=== PATIENT | female | born 1990 | race Caucasian/White ===

== ENCOUNTER 2018-11-12 14:35 | Emergency (ER) | payer OTHER ==
[~2018-11-12] VITALS: Ht 175.3 cm; Wt 59.0 kg
--- NOTE | 2018-11-12 15:50 | NUR ---
PATIENT WAS MSE BY DR GROVES IN [facility].
--- NOTE | 2018-11-12 16:02 | NUR ---
Patient discharged to home in stable conditon. Written and verbal after care instructions given. Patient verbalizes understanding of instructions.
[2018-11-12 16:03] VITALS: BP 119/79
== END 2018-11-12 16:15 | disposition home or self-care (01) ==
LOC: ER 14:35
DX: G40.909 Epilepsy, unspecified, not intractable, without status epilepticus (principal); Z88.0 Allergy status to penicillin; Z88.1 Allergy status to other antibiotic agents
CPT/HCPCS: A4663

== ENCOUNTER 2019-12-20 08:24 | Emergency (ER) | payer SELFPAY ==
[~2019-12-20] VITALS: Ht 175.3 cm; Wt 59.0 kg
--- NOTE | 2019-12-20 08:40 | NUR ---
PATIENT WAS MSE BY DR LEE IN ROOM 05A.
[2019-12-20] MEDS ORDERED: METOCLOPRAMIDE HCL 10 MG/2 ML VIAL IM ONE (08:45)
[2019-12-20] MEDS ORDERED: diphenhydrAMINE 50 MG/1 ML VIAL IM ONE (08:45)
[2019-12-20] MEDS ORDERED: METOCLOPRAMIDE HCL 10 MG/2 ML VIAL ONE (08:50)
[2019-12-20] MEDS ORDERED: diphenhydrAMINE 50 MG/1 ML VIAL ONE (08:50)
[2019-12-20] MEDS ORDERED: KETOROLAC TROMETHAMINE 30 MG INJ IVP ONE (09:45)
[2019-12-20] MEDS ORDERED: IV NORMAL SALINE 1000 ML BAG IV ONE (09:45)
[2019-12-20] MEDS ORDERED: KETOROLAC TROMETHAMINE 30 MG INJ ONE (09:50)
--- NOTE | 2019-12-20 10:51 | NUR ---
Patient discharged to home in stable condition. Written and verbal after care instructions given. Patient verbalizes understanding of instructions. All belongings sent with patient
[2019-12-20 10:53] VITALS: BP 125/68
== END 2019-12-20 10:52 | disposition home or self-care (01) ==
LOC: ER 08:24
DX: G40.909 Epilepsy, unspecified, not intractable, without status epilepticus (principal)
CPT/HCPCS: 96361; 96372 ×2; 96374; 99284; J1200; J1885; J2765; A4663; J7030

== ENCOUNTER 2020-12-02 06:54 | Emergency (ER) | payer SELFPAY ==
[~2020-12-02] VITALS: Ht 175.3 cm; Wt 59.0 kg
--- NOTE | 2020-12-02 07:04 | NUR ---
Patient walked into ER for headache and nausea since last night, getting worse. patient states she has a history of migraines.
--- NOTE | 2020-12-02 07:06 | NUR ---
Endorsed to BELLA Townsend.
[2020-12-02] MEDS ORDERED: HYDROMORPHONE 1 MG/1 ML DISP.SYRIN IV ONE (07:15)
[2020-12-02] MEDS ORDERED: ONDANSETRON 4 MG/2 ML VIAL IV ONE (07:15)
[2020-12-02] MEDS ORDERED: IV NORMAL SALINE 1000 ML BAG IV ONE (07:15)
[2020-12-02] MEDS ORDERED: ONDA4TAB5 PO (07:16)
[2020-12-02] MEDS ORDERED: OXYC-133 PO (07:16)
[2020-12-02] MEDS ORDERED: ONDANSETRON 4 MG/2 ML VIAL ONE (07:27)
[2020-12-02] MEDS ORDERED: HYDROMORPHONE 2 MG/1 ML DISP.SYRIN ONE (07:27)
--- NOTE | 2020-12-02 09:23 | NUR ---
pt ride here to take the pt home. pt says feels better.Patient discharged to home in stable condition. Written and verbal after care instructions given. pt walks in steady gait Patient verbalizes understanding of instructions. Stressed follow up or return to ER for worsening s/s.
[2020-12-02 09:26] VITALS: BP 119/67
== END 2020-12-02 09:35 | disposition home or self-care (01) ==
LOC: ER 07:03
DX: G43.909 Migraine, unspecified, not intractable, without status migrainosus (principal); Z88.1 Allergy status to other antibiotic agents; Z88.0 Allergy status to penicillin; G40.909 Epilepsy, unspecified, not intractable, without status epilepticus
CPT/HCPCS: 96361; 96374; 96375; 99284; J1170; J2405; A4663; J7030

== ENCOUNTER 2020-12-29 17:12 | Emergency (ER) | payer MEDICAID ==
[~2020-12-29] VITALS: Ht 175.3 cm; Wt 63.5 kg
--- NOTE | 2020-12-29 17:17 | NUR ---
pt is 30yo F brought in by her in a car. pt transferred from car to wheelchair. pt stated she had a seizure in the car and has history of epilepsy. pt also stated she ran out of her Keppra 2 weeks ago so she has not been taking it. complains of headache.
--- NOTE | 2020-12-29 17:20 | NUR ---
MD at bedside to assess pt
[2020-12-29] MEDS ORDERED: KETOROLAC TROMETHAMINE 30 MG INJ IVP ONE (17:30)
[2020-12-29] MEDS ORDERED: levETIRAcetam IV 500 MG in IV DEXTROSE 5% 100 ML IV ONE (17:30)
[2020-12-29] MEDS ORDERED: IV NORMAL SALINE 1000 ML BAG IV ONE (17:30)
[2020-12-29] MEDS ORDERED: diphenhydrAMINE 50 MG/1 ML VIAL IV ONE (17:30)
[2020-12-29] MEDS ORDERED: METOCLOPRAMIDE HCL 10 MG/2 ML VIAL IV ONE (17:30)
[2020-12-29] MEDS ORDERED: LEVE500T9 PO ×2 (17:36→19:16)
[2020-12-29] MEDS ORDERED: diphenhydrAMINE 50 MG/1 ML VIAL ONE (17:43)
[2020-12-29] MEDS ORDERED: KETOROLAC TROMETHAMINE 30 MG INJ ONE (17:43)
[2020-12-29] MEDS ORDERED: levETIRAcetam 500 MG/5 ML VIAL IV ONE (17:44)
[2020-12-29] MEDS ORDERED: METOCLOPRAMIDE HCL 10 MG/2 ML VIAL ONE (17:47)
[2020-12-29 17:54] LABS: BASOPHILS # (AUTO) 0.1 K/uL (0.0-8.0); BASOPHILS % (AUTO) 0.5 % (0.0-2.0); EOSINOPHILS # (AUTO) 0.2 K/uL (0.0-0.7); EOSINOPHILS % (AUTO) 1.5 % (0.0-7.0); HEMATOCRIT 42.3 % (31.2-41.9); HEMOGLOBIN 14.3 g/dL (10.9-14.3); LYMPHOCYTES # (AUTO) 1.8 K/uL (20.0-40.0); LYMPHOCYTES % (AUTO) 14.5 % (20.5-51.5); MEAN CORPUSCULAR HEMOGLOBIN 30.2 uug (24.7-32.8); MEAN CORPUSCULAR HGB CONC 34 g/dL (32.3-35.6); MONOCYTES # (AUTO) 0.5 K/uL (2.0-10.0); MONOCYTES % (AUTO) 4.1 % (0.0-11.0); NEUTROPHILS % (AUTO) 79.4 % (38.5-71.5); PLATELET COUNT (AUTO) 217 K/uL (179-408); RED BLOOD CELL COUNT(AUTO) 4.75 MIL/uL (3.63-4.92); WHITE BLOOD COUNT (AUTO) 12.5 K/uL (3.8-11.8)
--- NOTE | 2020-12-29 17:54 | NUR ---
pt taken down to CT at this time
[2020-12-29 17:55] LABS: CARBON DIOXIDE 23 mmol/L (21-32); CHLORIDE 100 mmol/L (98-107); CREATININE 0.5 mg/dL (0.6-1.3); GLUCOSE 94 mg/dL (74-106); POTASSIUM 3.9 mmol/L (3.5-5.1); UREA NITROGEN, BLOOD 8 mg/dL (7-18)
[2020-12-29 18:00] LABS: ALANINE AMINOTRANSFERASE 21 U/L (14-59); ALKALINE PHOSPHATASE 54 U/L (50-136); ASPARTATE AMINOTRANSFERASE 25 U/L (15-37); BILIRUBIN,DIRECT 0.2 mg/dL (0.0-0.2); TOTAL PROTEIN, SERUM 7.3 g/dL (6.4-8.2)
--- NOTE | 2020-12-29 18:00 | NUR ---
pt returned from CT scan. resting comfortably in the rney in the room
--- NOTE | 2020-12-29 19:05 | NUR ---
pt endorsed to maintenance technician 3rd shift RN. resting comfortably in bed, asleep
[2020-12-29] MEDS ORDERED: HYDROMORPHONE 1 MG/1 ML DISP.SYRIN IV ONE (19:15)
[2020-12-29] MEDS ORDERED: levETIRAcetam 250 MG TABLET PO ONE (19:15)
[2020-12-29] MEDS ORDERED: ONDANSETRON 4 MG/2 ML VIAL IV ONE (19:15)
[2020-12-29] MEDS ORDERED: HYDROMORPHONE 1 MG/1 ML DISP.SYRIN ONE (19:26)
[2020-12-29] MEDS ORDERED: ONDANSETRON 4 MG/2 ML VIAL ONE (19:27)
[2020-12-29] MEDS ORDERED: levETIRAcetam 250 MG TABLET ONE (19:28)
--- NOTE | 2020-12-29 19:55 | NUR ---
Patient discharged to home in stable condition. Written and verbal after care instructions given. Patient verbalizes understanding of instructions. Stressed follow up or return to ER for worsening s/s. Urged patient to follow up with [facility] for care for her or to discuss other options. Urged the patient to follow up with PCP to ensure she maintains adequate prescription refills so she can keep compliant with her healthcare needs. Patient verbalized understanding. Patient left in stable condition with no SOB or digns of distress. This RN helped to the patient to her boyfrGravitons car via wheelchair.
[2020-12-29 20:06] VITALS: BP 138/90
== END 2020-12-29 19:55 | disposition home or self-care (01) ==
LOC: ER 17:13
DX: O99.350 Diseases of the nervous system complicating pregnancy, unspecified trimester (principal); G40.909 Epilepsy, unspecified, not intractable, without status epilepticus; R51.9 Headache, unspecified; Z91.14 Patient's other noncompliance with medication regimen; Z88.1 Allergy status to other antibiotic agents; Z88.0 Allergy status to penicillin
CPT/HCPCS: 36415; 70450; 80048; 80076; 84702; 85025; 96365; 96375; 99284; J1170; J1200; J1885; J1953; J2405; J2765; A4663

== ENCOUNTER 2021-01-04 23:28 | Emergency (ER) | payer MEDICAID ==
[~2021-01-04] VITALS: Ht 175.3 cm; Wt 63.5 kg
[~2021-01-04 23:28] MED LIST: LEVE500T9 PO
--- NOTE | 2021-01-04 23:39 | NUR ---
MD Hernandez in room to do MSE.
[2021-01-04] MEDS ORDERED: HYDROMORPHONE 1 MG/1 ML DISP.SYRIN IV ONE (23:45)
[2021-01-04] MEDS ORDERED: IV NORMAL SALINE 1000 ML BAG IV ONE (23:45)
[2021-01-04] MEDS ORDERED: ONDANSETRON 4 MG/2 ML VIAL IV ONE (23:45)
[2021-01-04] MEDS ORDERED: ONDANSETRON 4 MG/2 ML VIAL ONE (23:55)
[2021-01-04] MEDS ORDERED: HYDROMORPHONE 2 MG/1 ML DISP.SYRIN ONE (23:55)
[2021-01-05 00:36] VITALS: BP 131/76
--- NOTE | 2021-01-05 00:36 | NUR ---
Patient discharged to home in stable condition. Written and verbal after care instructions given. Patient verbalizes understanding of instructions. Stressed follow up or return to ER for worsening s/s. Patient's boyfriend is driving her home. She is feeling better.
--- NOTE | 2021-01-05 00:36 | NUR ---
IV removed. Catheter intact and site benign. Pressure and 4x4 gauze applied to site. No bleeding noted.
== END 2021-01-05 00:37 | disposition home or self-care (01) ==
LOC: ER 23:31
DX: G43.909 Migraine, unspecified, not intractable, without status migrainosus (principal); G40.909 Epilepsy, unspecified, not intractable, without status epilepticus; Z88.0 Allergy status to penicillin; Z88.8 Allergy status to other drugs, medicaments and biological substances; Z79.899 Other long term (current) drug therapy
CPT/HCPCS: 96361; 96374; 96375; 99284; J1170; J2405; A4663; J7030

== ENCOUNTER 2021-01-18 02:38 | Emergency (ER) | payer MEDICAID ==
[~2021-01-18] VITALS: Ht 175.3 cm; Wt 63.5 kg
--- NOTE | 2021-01-18 02:58 | NUR ---
Dr. Clement at bedside for MSE.
[2021-01-18] MEDS ORDERED: ACETAMINOPHEN ES 500 MG TABLET PO ONE (03:15)
[2021-01-18] MEDS ORDERED: IV NORMAL SALINE 1000 ML BAG IV ONE (03:15)
[2021-01-18] MEDS ORDERED: SUMATRIPTAN SUCCINATE 50 MG TABLET PO ONE (03:15)
[2021-01-18] MEDS ORDERED: MAGNESIUM SULFATE/D5W 100 ML ONE (03:21)
[2021-01-18 03:28] LABS: BASOPHILS # (AUTO) 0.1 K/uL (0.0-8.0); BASOPHILS % (AUTO) 0.6 % (0.0-2.0); EOSINOPHILS # (AUTO) 0.6 K/uL (0.0-0.7); EOSINOPHILS % (AUTO) 5.7 % (0.0-7.0); HEMATOCRIT 37.5 % (31.2-41.9); HEMOGLOBIN 12.9 g/dL (10.9-14.3); LYMPHOCYTES # (AUTO) 2.4 K/uL (20.0-40.0); LYMPHOCYTES % (AUTO) 23.1 % (20.5-51.5); MEAN CORPUSCULAR HEMOGLOBIN 30.5 uug (24.7-32.8); MEAN CORPUSCULAR HGB CONC 34 g/dL (32.3-35.6); MEAN CORPUSCULAR VOLUME 88.6 fL (75.5-95.3); MONOCYTES # (AUTO) 0.6 K/uL (2.0-10.0); MONOCYTES % (AUTO) 6.1 % (0.0-11.0); NEUTROPHILS # (AUTO) 6.7 K/uL (1.8-8.9); NEUTROPHILS % (AUTO) 64.5 % (38.5-71.5); PLATELET COUNT (AUTO) 206 K/uL (179-408); RED BLOOD CELL COUNT(AUTO) 4.23 MIL/uL (3.63-4.92); WHITE BLOOD COUNT (AUTO) 10.4 K/uL (3.8-11.8)
[2021-01-18] MEDS: MAGNESIUM SULFATE/D5W 100 ML IV SCH ×2 (03:28→04:15)
[2021-01-18] MEDS ORDERED: diphenhydrAMINE 50 MG/1 ML VIAL IV ONE (03:30)
[2021-01-18 03:34] LABS: CREATININE 0.6 mg/dL (0.6-1.3)
[2021-01-18] MEDS ORDERED: ACETAMINOPHEN ES 500 MG TABLET ONE (03:37)
[2021-01-18] MEDS ORDERED: SUMATRIPTAN SUCCINATE 50 MG TABLET ONE (03:37)
[2021-01-18] MEDS ORDERED: diphenhydrAMINE 50 MG/1 ML VIAL ONE (03:37)
[2021-01-18 03:40] LABS: BILIRUBIN,DIRECT 0.1 mg/dL (0.0-0.2); BILIRUBIN,TOTAL 0.4 mg/dL (0.2-1.0); TOTAL PROTEIN, SERUM 6.1 g/dL (6.4-8.2)
[2021-01-18] MEDS ORDERED: SUMA50TA PO (04:40)
[2021-01-18 05:01] LABS: *BILIRUBIN,URIN NEGATIVE (NEGATIVE); *BLOOD, URINE NEGATIVE (NEGATIVE); *KETONES,URINE NEGATIVE (NEGATIVE); *UROBILINOGEN,URINE 0.2 E.U./dl (NORMAL); LEUKOCYTE ESTERASE ,URINE NEGATIVE (NEGATIVE); NITRITE, URINE NEGATIVE (NEGATIVE); PH,URINE 7.5 (5.0-8.0); UGLUCOSE NEGATIVE (NEGATIVE)
[2021-01-18 05:04] LABS: *CLARITY,URINE CLEAR (CLEAR); *COLOR,URINE STRAW (YELLOW)
[2021-01-18 05:21] LABS: *AMPHETAMINE, URINE NEGATIVE (NEGATIVE); *CANNABINOID, URINE POSITIVE (NEGATIVE); *COCCAINE, URINE NEGATIVE (NEGATIVE); *OPIATE, URINE NEGATIVE (NEGATIVE); *PHENCYCLIDINE SCREEN,URINE NEGATIVE (NEGATIVE)
--- NOTE | 2021-01-18 05:23 | NUR ---
Patient discharged to home in stable condition. Written and verbal after care instructions given. Patient verbalizes understanding of instructions. Stressed follow up or return to ER for worsening s/s.
[2021-01-18 05:24] VITALS: BP 131/72
== END 2021-01-18 05:24 | disposition home or self-care (01) ==
LOC: ER 02:41
DX: O99.352 Diseases of the nervous system complicating pregnancy, second trimester (principal); G43.909 Migraine, unspecified, not intractable, without status migrainosus; G40.909 Epilepsy, unspecified, not intractable, without status epilepticus; Z3A.15 15 weeks gestation of pregnancy; Z88.1 Allergy status to other antibiotic agents; Z88.0 Allergy status to penicillin; Z88.8 Allergy status to other drugs, medicaments and biological substances; O99.322 Drug use complicating pregnancy, second trimester; F12.90 Cannabis use, unspecified, uncomplicated
CPT/HCPCS: 36415; 76819; 80048; 80076; 80307; 81003; 84702; 85025; 86900; 86901; 96365; 96375; 99284; J1200; J3475; A4663; A9150; J7030

== ENCOUNTER 2021-01-28 07:47 | Emergency (ER) | payer MEDICAID ==
[~2021-01-28] VITALS: Ht 175.3 cm; Wt 68.0 kg
[~2021-01-28 07:47] MED LIST changes: +SUMA50TA PO
[2021-01-28] MEDS ORDERED: IV NORMAL SALINE 1000 ML BAG IV ONE ×2 (08:15→09:45)
[2021-01-28] MEDS ORDERED: ONDANSETRON 4 MG/2 ML VIAL IV ONE (08:15)
[2021-01-28 08:24] LABS: BASOPHILS % (AUTO) 0.3 % (0.0-2.0); EOSINOPHILS # (AUTO) 0.3 K/uL (0.0-0.7); EOSINOPHILS % (AUTO) 2.9 % (0.0-7.0); HEMATOCRIT 37.5 % (31.2-41.9); HEMOGLOBIN 12.7 g/dL (10.9-14.3); MEAN CORPUSCULAR HEMOGLOBIN 30.2 uug (24.7-32.8); MEAN CORPUSCULAR HGB CONC 34 g/dL (32.3-35.6); MEAN CORPUSCULAR VOLUME 89.4 fL (75.5-95.3); MONOCYTES # (AUTO) 0.6 K/uL (2.0-10.0); MONOCYTES % (AUTO) 5.2 % (0.0-11.0); NEUTROPHILS # (AUTO) 8.6 K/uL (1.8-8.9); NEUTROPHILS % (AUTO) 74.6 % (38.5-71.5); PLATELET COUNT (AUTO) 198 K/uL (179-408); RED BLOOD CELL COUNT(AUTO) 4.19 MIL/uL (3.63-4.92); WHITE BLOOD COUNT (AUTO) 11.6 K/uL (3.8-11.8)
[2021-01-28] MEDS ORDERED: ONDANSETRON 4 MG/2 ML VIAL ONE (08:25)
[2021-01-28 08:29] LABS: CARBON DIOXIDE 22 mmol/L (21-32); CHLORIDE 102 mmol/L (98-107); CREATININE 0.5 mg/dL (0.6-1.3); GLUCOSE 83 mg/dL (74-106); POTASSIUM 3.7 mmol/L (3.5-5.1); UREA NITROGEN, BLOOD 5 mg/dL (7-18)
[2021-01-28 08:35] LABS: ALANINE AMINOTRANSFERASE 11 U/L (14-59); ALKALINE PHOSPHATASE 50 U/L (50-136); ASPARTATE AMINOTRANSFERASE 17 U/L (15-37); BILIRUBIN,DIRECT 0.1 mg/dL (0.0-0.2); BILIRUBIN,TOTAL 0.4 mg/dL (0.2-1.0); TOTAL PROTEIN, SERUM 6.4 g/dL (6.4-8.2)
[2021-01-28] MEDS ORDERED: MORPHINE SULFATE 4 MG/1 ML DISP.SYRIN IV ONE ×2 (09:15→10:30)
[2021-01-28] MEDS ORDERED: MORPHINE SULFATE 4 MG/1 ML DISP.SYRIN ONE ×2 (09:27→10:37)
--- NOTE | 2021-01-28 12:03 | NUR ---
Note loraine in [facility] - 01/28/21 at 1232 by ALEK Pt resting in bed, no complaints, no distress noted. Still awaiting bed assignment. Pt doing self catheterization.
[2021-01-28] MEDS ORDERED: DOXY25TA60 PO (12:13)
[2021-01-28] MEDS ORDERED: ALBU8.5H8 INH (12:13)
--- NOTE | 2021-01-28 12:24 | NUR ---
Removed IV intact, site okay, bandaged. Gave pt RX and d/c instructions, pt verbalized understanding.
[2021-01-28 12:39] VITALS: BP 113/68
== END 2021-01-28 12:41 | disposition home or self-care (01) ==
LOC: ER 07:47
DX: G43.909 Migraine, unspecified, not intractable, without status migrainosus (principal); O21.0 Mild hyperemesis gravidarum; Z3A.17 17 weeks gestation of pregnancy; G40.909 Epilepsy, unspecified, not intractable, without status epilepticus; Z88.1 Allergy status to other antibiotic agents; Z88.0 Allergy status to penicillin
CPT/HCPCS: 36415; 80048; 80076; 85025; 96361; 96374; 96375; 96376; 99284; J2270 ×2; J2405; A4663; J7030

== ENCOUNTER 2021-03-14 10:26 | Emergency (ER) | payer MEDICAID ==
[~2021-03-14] VITALS: Ht 175.3 cm; Wt 68.0 kg
[~2021-03-14 10:26] MED LIST changes: +ALBU8.5H8 INH; +DOXY25TA60 PO
--- NOTE | 2021-03-14 10:46 | NUR ---
Dr Hernandez at the bedside for MSE.
[2021-03-14 10:54] VITALS: BP 112/71
== END 2021-03-14 10:54 | disposition home or self-care (01) ==
LOC: ER 10:26
DX: K04.7 Periapical abscess without sinus (principal); S02.5XXA Fracture of tooth (traumatic), initial encounter for closed fracture; X58.XXXA Exposure to other specified factors, initial encounter; Y92.89 Other specified places as the place of occurrence of the external cause; Z88.1 Allergy status to other antibiotic agents; Z88.0 Allergy status to penicillin; Z88.8 Allergy status to other drugs, medicaments and biological substances; G40.909 Epilepsy, unspecified, not intractable, without status epilepticus; G43.909 Migraine, unspecified, not intractable, without status migrainosus
CPT/HCPCS: A4663

== ENCOUNTER 2021-04-03 15:06 | Emergency (ER) | payer MEDICAID ==
[~2021-04-03] VITALS: Ht 175.3 cm; Wt 74.8 kg
[2021-04-03] MEDS ORDERED: IV NORMAL SALINE 1000 ML BAG IV ONE (15:45)
[2021-04-03] MEDS ORDERED: ALBUTEROL SULFATE 2.5 MG/3 ML NEBU NEB ONE (15:45)
[2021-04-03] MEDS ORDERED: ALBUTEROL SULFATE 2.5 MG/3 ML NEBU ONE ×2 (16:03→16:17)
--- NOTE | 2021-04-03 16:12 | NUR ---
Patient declined lab draw and states she only wants the covid test and breathing treatment. started breathing treatment by RT. pt o2sat at 98-99% NAD VSS
[2021-04-03] MEDS ORDERED: ALBU6.7H9 INH (16:50)
[2021-04-03] MEDS ORDERED: ALBU2.5V13 NEB (16:50)
[2021-04-03 17:02] VITALS: BP 128/76
[2021-04-04] MEDS ORDERED: NEBU-273 MC (07:59)
[2021-04-04] MEDS ORDERED: NEBU-171 MC (07:59)
[2021-04-04] MEDS ORDERED: NEBU1EAC MC (07:59)
== END 2021-04-03 17:03 | disposition home or self-care (01) ==
LOC: ER 15:07
DX: O26.892 Other specified pregnancy related conditions, second trimester (principal); J45.901 Unspecified asthma with (acute) exacerbation; O99.352 Diseases of the nervous system complicating pregnancy, second trimester; Z3A.00 Weeks of gestation of pregnancy not specified; G40.909 Epilepsy, unspecified, not intractable, without status epilepticus; G43.909 Migraine, unspecified, not intractable, without status migrainosus; Z88.0 Allergy status to penicillin; Z88.1 Allergy status to other antibiotic agents
CPT/HCPCS: 71045; 87426; 93005; 94640 ×2; 99285; U0003; A4663

== ENCOUNTER 2021-04-04 07:16 | Emergency (ER) | payer MEDICAID ==
[~2021-04-04] VITALS: Ht 175.3 cm; Wt 74.8 kg
[~2021-04-04 07:16] MED LIST changes: +ALBU2.5V13 NEB; +ALBU6.7H9 INH
--- NOTE | 2021-04-04 07:27 | NUR ---
Dr Escalante at the bedside for MSE.
[2021-04-04] MEDS ORDERED: ALBUTEROL SULFATE 2.5 MG/3 ML NEBU NEB ONE (07:30)
[2021-04-04] MEDS ORDERED: ALBUTEROL SULFATE 2.5 MG/3 ML NEBU ONE (07:40)
--- NOTE | 2021-04-04 07:44 | NUR ---
HR is 180 beats/min, cecked by doppler.
[2021-04-04] MEDS ORDERED: NEBU-171 MC (07:59)
[2021-04-04] MEDS ORDERED: NEBU-273 MC (07:59)
[2021-04-04] MEDS ORDERED: NEBU1EAC MC (07:59)
[2021-04-04 08:18] VITALS: BP 122/68
== END 2021-04-04 08:18 | disposition home or self-care (01) ==
LOC: ER 07:19
DX: O99.512 Diseases of the respiratory system complicating pregnancy, second trimester (principal); Z3A.00 Weeks of gestation of pregnancy not specified; J45.909 Unspecified asthma, uncomplicated
CPT/HCPCS: A4663

== ENCOUNTER 2021-06-20 08:27 | Emergency (ER) | payer MEDICAID ==
[~2021-06-20] VITALS: Ht 175.3 cm; Wt 90.7 kg
[~2021-06-20 08:27] MED LIST changes: +NEBU-171 MC; +NEBU-273 MC; +NEBU1EAC MC
--- NOTE | 2021-06-20 08:40 | NUR ---
DR LEE AT BEDSIDE FOR EVALUATION
--- NOTE | 2021-06-20 08:42 | NUR ---
Kristyn baron in ED - 06/20/21 at 0842 by DEION Md at bedside at time
[2021-06-20] MEDS ORDERED: IBUP-1958 PO (08:51)
[2021-06-20] MEDS ORDERED: HYDR-4209 PO (08:51)
[2021-06-20] MEDS ORDERED: AZIT500T2 PO (08:51)
[2021-06-20 08:53] VITALS: BP 123/73
== END 2021-06-20 08:54 | disposition home or self-care (01) ==
LOC: ER 08:27
DX: K08.89 Other specified disorders of teeth and supporting structures (principal); J45.909 Unspecified asthma, uncomplicated; G40.909 Epilepsy, unspecified, not intractable, without status epilepticus; Z79.899 Other long term (current) drug therapy
CPT/HCPCS: A4663

== ENCOUNTER 2021-11-12 23:08 | Emergency (ER) | payer MEDICAID ==
[~2021-11-12] VITALS: Ht 175.3 cm; Wt 83.9 kg
[~2021-11-12 23:08] MED LIST changes: +AZIT500T2 PO; +HYDR-4209 PO; +IBUP-1958 PO; -NEBU-171 MC
--- NOTE | 2021-11-12 23:16 | NUR ---
DR. RASHID, [place]. A BEDSIDE, MSE IN PROGRESS.
[2021-11-12] MEDS ORDERED: ONDANSETRON ODT 4 MG TAB.RAPDIS ONE (23:29)
[2021-11-12] MEDS ORDERED: LORAZEPAM 2 MG/1 ML VIAL IM ONE (23:30)
[2021-11-12] MEDS ORDERED: HYDROMORPHONE 2 MG/1 ML DISP.SYRIN ONE (23:30)
[2021-11-12] MEDS ORDERED: LORAZEPAM 2 MG/1 ML VIAL ONE (23:30)
[2021-11-12] MEDS ORDERED: ONDANSETRON ODT 4 MG TAB.RAPDIS SL ONE (23:30)
[2021-11-12] MEDS ORDERED: HYDROMORPHONE 1 MG/1 ML DISP.SYRIN IM ONE (23:30)
[2021-11-12] MEDS ORDERED: ONDA4TAB5 PO (23:47)
[2021-11-12] MEDS ORDERED: HYDR-3980 PO (23:47)
[2021-11-13] MEDS ORDERED: HYDROMORPHONE 2 MG/1 ML DISP.SYRIN ONE (00:27)
[2021-11-13] MEDS ORDERED: HYDROMORPHONE 1 MG/1 ML DISP.SYRIN IM ONE (00:30)
--- NOTE | 2021-11-13 01:14 | NUR ---
PT IS ASLEEP, EYES CLOSED. BREATHING EVEN AND UNLABORED.
[2021-11-13] MEDS ORDERED: ALBU8.5H8 INH (02:24)
[2021-11-13] MEDS ORDERED: HYDR-3980 PO (02:24)
[2021-11-13] MEDS ORDERED: ONDA4TAB5 PO (02:24)
--- NOTE | 2021-11-13 02:36 | NUR ---
Patient discharged to home in stable condition. Written and verbal after care instructions given. Patient verbalizes understanding of instructions. Stressed follow up or return to ER for worsening s/s. Steady gait, denies any n/v. No SPIVEY/dizzyness. Picked up by boyfriend.
[2021-11-13 02:37] VITALS: BP 108/62
== END 2021-11-13 02:42 | disposition home or self-care (01) ==
LOC: ER 23:10
DX: G43.909 Migraine, unspecified, not intractable, without status migrainosus (principal); G40.909 Epilepsy, unspecified, not intractable, without status epilepticus; J45.909 Unspecified asthma, uncomplicated; Z88.1 Allergy status to other antibiotic agents; Z88.0 Allergy status to penicillin; R03.0 Elevated blood-pressure reading, without diagnosis of hypertension
CPT/HCPCS: 96372 ×2; 99284; J1170 ×2; J2060; A4663; Q0162

== ENCOUNTER 2022-02-08 15:17 | Emergency (ER) | payer MEDICAID ==
[~2022-02-08] VITALS: Ht 175.3 cm; Wt 81.6 kg
[~2022-02-08 15:17] MED LIST changes: +HYDR-3980 PO; +ONDA4TAB5 PO
[2022-02-08] MEDS ORDERED: KETOROLAC TROMETHAMINE 15 MG INJ IVP ONE (16:00)
[2022-02-08] MEDS ORDERED: ONDANSETRON 4 MG/2 ML VIAL IV ONE (16:00)
[2022-02-08] MEDS ORDERED: IV NORMAL SALINE 1000 ML BAG IV ONE (16:00)
[2022-02-08] MEDS ORDERED: ONDANSETRON 4 MG/2 ML VIAL ONE (16:12)
[2022-02-08] MEDS ORDERED: KETOROLAC TROMETHAMINE 15 MG INJ ONE (16:12)
[2022-02-08] MEDS ORDERED: IBUP-1955 PO (16:18)
[2022-02-08] MEDS ORDERED: ONDA4TAB5 PO (16:18)
[2022-02-08] MEDS ORDERED: ACETAMINOPHEN ES 500 MG TABLET PO ONE (17:30)
[2022-02-08] MEDS ORDERED: DEXAMETHASONE SOD PHOSPHATE 4 MG INJ IV ONE (17:30)
[2022-02-08] MEDS ORDERED: ACETAMINOPHEN ES 500 MG TABLET ONE (17:41)
[2022-02-08] MEDS ORDERED: DEXAMETHASONE SOD PHOSPHATE 10 MG INJ ONE (17:42)
--- NOTE | 2022-02-08 17:49 | NUR ---
MD NOTIFIED ABOUT PERSISTENT COMPLAINT OF BODY PAIN. MEDICATED PER MD ORDER.
--- NOTE | 2022-02-08 18:30 | NUR ---
Patient discharged to home in stable condition. Written and verbal after care instructions given. Patient verbalizes understanding of instructions. Stressed follow up or return to ER for worsening s/s.PT WALKS IN STEADY GAIT. PT WITH BOY FRIEND
[2022-02-08 18:48] VITALS: BP 121/66
--- NOTE | 2022-02-10 10:41 | NUR ---
LATE ENTRY: 02/08/22 IV INFUSION CLARIFICATION NOTE: IV NS 1000ML BOLUS INFUSION STARTED AT 1629 AND COMPLETED AT 1700.
== END 2022-02-08 18:49 | disposition home or self-care (01) ==
LOC: ER 15:20
DX: J10.1 Influenza due to other identified influenza virus with other respiratory manifestations (principal); Z88.1 Allergy status to other antibiotic agents; Z88.0 Allergy status to penicillin; G40.909 Epilepsy, unspecified, not intractable, without status epilepticus; J45.909 Unspecified asthma, uncomplicated; R51.9 Headache, unspecified
CPT/HCPCS: 96374; 96375; 99284; J1100; J1885; J2405; J7040; A4663; A9150

== ENCOUNTER 2022-03-02 20:22 | Emergency (ER) | payer MEDICAID ==
[~2022-03-02] VITALS: Ht 175.3 cm; Wt 63.5 kg
[~2022-03-02 20:22] MED LIST changes: +IBUP-1955 PO
--- NOTE | 2022-03-02 20:31 | NUR ---
AFTER BEING TRIAGED, PATIENT WAS PLACED BACK INTO WAITING ROOM DUE TO NO BEDS AVAILABLE IN THE ER.
--- NOTE | 2022-03-02 21:35 | NUR ---
Placed in room 1A.
--- NOTE | 2022-03-02 22:25 | NUR ---
Dr. Olivera at bedside, MSE in progress.
[2022-03-02] MEDS ORDERED: OXYC-128 PO (22:27)
[2022-03-02] MEDS ORDERED: CEPH500C2 PO (22:27)
[2022-03-02 22:43] VITALS: BP 136/78
--- NOTE | 2022-03-02 22:43 | NUR ---
Patient discharged to home in stable condition. Written and verbal after care instructions given. Patient verbalizes understanding of instructions. Stressed follow up or return to ER for worsening s/s. Steady gait.
== END 2022-03-02 22:45 | disposition home or self-care (01) ==
LOC: ER 20:26
DX: K08.89 Other specified disorders of teeth and supporting structures (principal); Z88.1 Allergy status to other antibiotic agents; Z88.0 Allergy status to penicillin; G40.909 Epilepsy, unspecified, not intractable, without status epilepticus; J45.909 Unspecified asthma, uncomplicated; Z79.899 Other long term (current) drug therapy
CPT/HCPCS: A4663

== ENCOUNTER 2022-04-24 10:06 | Emergency (ER) | payer MEDICAID ==
[~2022-04-24] VITALS: Ht 175.3 cm; Wt 63.5 kg
[~2022-04-24 10:06] MED LIST changes: +CEPH500C2 PO; +OXYC-128 PO
[2022-04-24] MEDS ORDERED: PROCHLORPERAZINE EDISYLATE 10 MG/2 ML VIAL IV ONE (10:30)
[2022-04-24] MEDS ORDERED: IV NORMAL SALINE 1000 ML BAG IV ONE (10:30)
[2022-04-24] MEDS ORDERED: MAGNESIUM SULFATE/D5W 100 ML ONE ×2 (10:32→13:29)
[2022-04-24] MEDS ORDERED: PROCHLORPERAZINE EDISYLATE 10 MG/2 ML VIAL ONE (10:33)
[2022-04-24] MEDS: MAGNESIUM SULFATE/D5W 100 ML IV SCH ×2 (10:50→13:30)
[2022-04-24] MEDS ORDERED: ACETAMINOPHEN 325 MG TABLET PO ONE (11:15)
[2022-04-24] MEDS ORDERED: ACETAMINOPHEN ES 500 MG TABLET ONE (11:52)
[2022-04-24 11:57] LABS: *URINE HCG, QUAL NEGATIVE (NEGATIVE)
[2022-04-24] MEDS ORDERED: KETOROLAC TROMETHAMINE 15 MG INJ ONE (12:09)
[2022-04-24] MEDS ORDERED: KETOROLAC TROMETHAMINE 15 MG INJ IVP STA (12:14)
[2022-04-24] MEDS ORDERED: MORPHINE SULFATE 4 MG/1 ML DISP.SYRIN IV ONE (12:30)
[2022-04-24] MEDS ORDERED: MORPHINE SULFATE 4 MG/1 ML DISP.SYRIN ONE (12:57)
--- NOTE | 2022-04-24 14:59 | NUR ---
Pt states her pain is much better, now 2/10, no nausea. Removed IV intact, site okay, bandaged. Gave pt RX and d/c instructions, pt verbalized understanding.
== END 2022-04-24 15:10 | disposition home or self-care (01) ==
LOC: ER 10:07
DX: R51.9 Headache, unspecified (principal); G40.909 Epilepsy, unspecified, not intractable, without status epilepticus; J45.909 Unspecified asthma, uncomplicated; Z88.1 Allergy status to other antibiotic agents; Z88.0 Allergy status to penicillin; Z79.899 Other long term (current) drug therapy
CPT/HCPCS: 99284; 96365; 96375; 96366; 84703; J1885; J3475 ×2; J0780; J2270; J7040; A4663; A9150

== ENCOUNTER 2023-02-15 11:35 | Emergency (ER) | payer MEDICAID ==
[~2023-02-15] VITALS: Ht 175.3 cm; Wt 59.0 kg
[2023-02-15] MEDS ORDERED: IV NORMAL SALINE 500 ML BAG IV ONE ×2 (11:45→13:30)
[2023-02-15] MEDS ORDERED: ACETAMINOPHEN 325 MG TABLET PO ONE (11:45)
[2023-02-15] MEDS ORDERED: METOCLOPRAMIDE HCL 10 MG/2 ML VIAL IV ONE (11:45)
[2023-02-15] MEDS ORDERED: diphenhydrAMINE 50 MG/1 ML VIAL IV ONE (11:45)
[2023-02-15] MEDS ORDERED: KETOROLAC TROMETHAMINE 15 MG INJ IVP ONE (11:45)
[2023-02-15] MEDS ORDERED: KETOROLAC TROMETHAMINE 15 MG INJ ONE (11:46)
[2023-02-15] MEDS ORDERED: METOCLOPRAMIDE HCL 10 MG/2 ML VIAL ONE (11:46)
[2023-02-15] MEDS ORDERED: diphenhydrAMINE 50 MG/1 ML VIAL ONE (11:46)
[2023-02-15] MEDS ORDERED: ACETAMINOPHEN 325 MG TABLET ONE (11:46)
[2023-02-15] MEDS ORDERED: PROCHLORPERAZINE EDISYLATE 10 MG/2 ML VIAL ONE (12:05)
--- NOTE | 2023-02-15 12:12 | NUR ---
PT IS IN ROOM #2B. DR DIGGS EVALUATED THE PT.
[2023-02-15] MEDS ORDERED: PROCHLORPERAZINE EDISYLATE 10 MG/2 ML VIAL IV ONE (12:15)
[2023-02-15] MEDS ORDERED: DEXAMETHASONE SOD PHOSPHATE 4 MG INJ IV ONE (13:30)
[2023-02-15] MEDS ORDERED: MAGNESIUM SULFATE 1 GM/2 ML VIAL ONE (13:45)
[2023-02-15] MEDS ORDERED: MAGNESIUM SULFATE/D5W 100 ML ONE (13:45)
[2023-02-15] MEDS ORDERED: DEXAMETHASONE SOD PHOSPHATE 4 MG INJ ONE (13:46)
[2023-02-15] MEDS: MAGNESIUM SULFATE/D5W 100 ML IV SCH ×2 (13:58→14:51)
--- NOTE | 2023-02-15 16:54 | NUR ---
PT WAS D/C'd TO HOME. D/C INSTRUCTIONS GIVEN TO [facility] PT BY DR DIGGS.
[2023-02-15 16:55] VITALS: BP 128/66
== END 2023-02-15 16:56 | disposition home or self-care (01) ==
LOC: ER 11:35
DX: G43.909 Migraine, unspecified, not intractable, without status migrainosus (principal); J45.909 Unspecified asthma, uncomplicated; Z88.0 Allergy status to penicillin; Z88.1 Allergy status to other antibiotic agents; Z88.8 Allergy status to other drugs, medicaments and biological substances; Z79.1 Long term (current) use of non-steroidal anti-inflammatories (NSAID); Z79.899 Other long term (current) drug therapy
CPT/HCPCS: 99284; 96365; 96375; 96361; 96366; J1100; J1200; J1885; J3475 ×2; J2765; J0780; J7040 ×2; A4663

== ENCOUNTER 2024-09-11 07:13 | Emergency (ER) | payer MEDICAID ==
[~2024-09-11] VITALS: Ht 172.7 cm; Wt 84.4 kg
[2024-09-11] MEDS: IV NORMAL SALINE 1000 ML BAG IV ONE (09:00)
[2024-09-11] MEDS ORDERED: diphenhydrAMINE 50 MG/1 ML VIAL ONE ×2 (09:01→09:04)
[2024-09-11] MEDS ORDERED: PROCHLORPERAZINE EDISYLATE 10 MG/2 ML VIAL ONE ×2 (09:01→09:05)
[2024-09-11] MEDS: diphenhydrAMINE 50 MG/1 ML VIAL IV ONE (09:06)
[2024-09-11] MEDS: PROCHLORPERAZINE EDISYLATE 10 MG/2 ML VIAL IV ONE (09:07)
[2024-09-11 10:32] VITALS: BP 128/78; TEMP 98; O2SAT 99
== END 2024-09-11 10:32 | disposition home or self-care (01) ==
LOC: ER 07:13
DX: G43.909 Migraine, unspecified, not intractable, without status migrainosus (principal); G40.909 Epilepsy, unspecified, not intractable, without status epilepticus; J45.909 Unspecified asthma, uncomplicated; Z79.899 Other long term (current) drug therapy; Z88.0 Allergy status to penicillin; Z88.1 Allergy status to other antibiotic agents
CPT/HCPCS: 99284; 96374; 96361; 96375; J1200; J0780; J7040; A4606; A4663

== ENCOUNTER 2025-03-09 13:36 | Emergency (ER) | payer MEDICAID ==
[~2025-03-09] VITALS: Ht 177.8 cm; Wt 99.8 kg
[2025-03-09] MEDS ORDERED: PROCHLORPERAZINE EDISYLATE 10 MG/2 ML VIAL ONE ×2 (14:17→15:11)
[2025-03-09] MEDS ORDERED: diphenhydrAMINE 50 MG/1 ML VIAL ONE (14:17)
[2025-03-09] MEDS: IV NORMAL SALINE 1000 ML BAG IV ONE (14:22)
[2025-03-09] MEDS: PROCHLORPERAZINE EDISYLATE 10 MG/2 ML VIAL IV ONE ×2 (14:22→15:19)
[2025-03-09] MEDS: diphenhydrAMINE 50 MG/1 ML VIAL IVP ONE (14:23)
[2025-03-09] MEDS ORDERED: BUPRENORPHINE HCL 2 MG TAB.SUBL SL ONE (17:53)
[2025-03-09] MEDS: BUPRENORPHINE HCL 2 MG TAB.SUBL SL ONE (17:54)
[2025-03-09] MEDS ORDERED: ONDANSETRON 4 MG/2 ML VIAL ONE (18:33)
[2025-03-09] MEDS: ONDANSETRON 4 MG/2 ML VIAL IV ONE (18:33)
[2025-03-09 19:03] VITALS: BP 128/66; TEMP 97.8; O2SAT 96
== END 2025-03-09 18:45 | disposition home or self-care (01) ==
LOC: ER 13:37
DX: G43.909 Migraine, unspecified, not intractable, without status migrainosus (principal); G40.909 Epilepsy, unspecified, not intractable, without status epilepticus; J45.909 Unspecified asthma, uncomplicated; Z79.899 Other long term (current) drug therapy; Z88.0 Allergy status to penicillin; Z88.1 Allergy status to other antibiotic agents; Z88.8 Allergy status to other drugs, medicaments and biological substances
CPT/HCPCS: 99285; 96374; 96375; 96361; 96376; J1200; J2405; J0780 ×2; J7040; A4606; A4663

== ENCOUNTER 2025-08-05 05:56 | Inpatient (IN) | payer MEDICAID ==
[~2025-08-05] VITALS: Ht 175.3 cm; Wt 87.1 kg
[~2025-08-05 05:56] MED LIST changes: -IBUP-1955 PO; +IBUP-2760 PO
[2025-08-05] MEDS ORDERED: IV NS 1000 ML 1,000 ML IV ONE (06:45)
[2025-08-05] MEDS ORDERED: KETOROLAC TROMETHAMINE 30 MG INJ IVP ONE (06:45)
[2025-08-05] MEDS ORDERED: diphenhydrAMINE 50 MG/1 ML VIAL IV ONE (06:45)
[2025-08-05] MEDS ORDERED: PROCHLORPERAZINE EDISYLATE 10 MG/2 ML VIAL IV ONE (06:45)
[2025-08-05] MEDS ORDERED: HYDROMORPHONE 1 MG/1 ML DISP.SYRIN ONE ×3 (06:50→09:57)
[2025-08-05] MEDS ORDERED: ONDANSETRON 4 MG/2 ML VIAL ONE (06:50)
[2025-08-05] MEDS: ONDANSETRON 4 MG/2 ML VIAL IV ONE (07:10)
[2025-08-05] MEDS: HYDROMORPHONE 1 MG/1 ML DISP.SYRIN IV ONE ×3 (07:10→10:02)
[2025-08-05] MEDS ORDERED: KETOROLAC TROMETHAMINE 30 MG INJ ONE (07:15)
[2025-08-05] MEDS ORDERED: MAGNESIUM SULFATE/D5W 200 ML ONE (07:16)
[2025-08-05] MEDS ORDERED: diphenhydrAMINE 50 MG/1 ML VIAL ONE (07:16)
[2025-08-05 07:18] LABS: PLATELET COUNT (AUTO) 206 K/uL (179-408); RED BLOOD CELL COUNT(AUTO) 5.12 MIL/uL (3.63-4.92); RED CELL DISTRIBUTION WIDTH 14.4 % (12.3-17.7); WHITE BLOOD COUNT (AUTO) 10.4 K/uL (3.8-11.8)
[2025-08-05 07:26] LABS: CREATININE 0.7 mg/dL (0.6-1.3); SODIUM SERUM 136.0 mmol/L (136-145); UREA NITROGEN, BLOOD 6.0 mg/dL (7-18)
[2025-08-05] MEDS: IV NORMAL SALINE 1000 ML BAG IV ONE (07:31)
[2025-08-05] MEDS: diphenhydrAMINE 50 MG/1 ML VIAL IV ONE (07:31)
[2025-08-05] MEDS: KETOROLAC TROMETHAMINE 30 MG INJ IVP ONE (07:31)
[2025-08-05] MEDS: MAGNESIUM SULFATE/D5W 100 ML IV SCH (07:31)
[2025-08-05 07:32] LABS: ASPARTATE AMINOTRANSFERASE 23.0 U/L (15-37); TOTAL PROTEIN, SERUM 8.1 g/dL (6.4-8.2)
[2025-08-05 08:47] LABS: *BLOOD, URINE 3+ (NEGATIVE); *CLARITY,URINE SLIGHTLY CLOUDY (CLEAR); *COLOR,URINE YELLOW (YELLOW); *KETONES,URINE TRACE (NEGATIVE); *PROTEIN,URINE 1+ (NEGATIVE); *UROBILINOGEN,URINE 0.2 E.U./dl (NORMAL); LEUKOCYTE ESTERASE ,URINE NEGATIVE (NEGATIVE); NITRITE, URINE NEGATIVE (NEGATIVE); UGLUCOSE NEGATIVE (NEGATIVE)
[2025-08-05 08:53] LABS: *BILIRUBIN,URIN 1+ (NEGATIVE); *URINE HCG, QUAL NEGATIVE (NEGATIVE)
[2025-08-05] MEDS ORDERED: SWABABLE VALVE TRANSFER SET EA MC ONE (09:12)
[2025-08-05] MEDS ORDERED: IOHEXOL 300MG/ML 100 ML INFUS..BTL ONE (09:12)
[2025-08-05] MEDS ORDERED: IV NORMAL SALINE 250 ML IV ONE (09:13)
[2025-08-05 09:25] LABS: SQUAMOUS EPITHELIAL CELL,UR MODERATE /HPF (NONE SEEN)
[2025-08-05 09:26] LABS: URINE AMORPHOUS URATE MANY /HPF
[2025-08-05 12:00] VITALS: BP 136/81
[2025-08-05 13:30] VITALS: BP 99/66; TEMP 97.2; O2SAT 97
[2025-08-05] MEDS ORDERED: ALBUTEROL SULFATE 8 GM HFA.AER.AD INH PRN (14:45)
[2025-08-05] MEDS ORDERED: SUMATRIPTAN SUCCINATE 50 MG TABLET PO PRN (14:45)
[2025-08-05] MEDS ORDERED: ACETAMINOPHEN 325 MG TABLET PO PRN (15:00)
[2025-08-05] MEDS ORDERED: ONDANSETRON 4 MG/2 ML VIAL IV PRN (15:00)
[2025-08-05 15:48] VITALS: BP 110/72; TEMP 97.5; O2SAT 98
[2025-08-05] MEDS ORDERED: ALBUTEROL SULFATE 2.5 MG/3 ML NEBU NEB PRN (16:00)
[2025-08-05] MEDS: IV D5/ 0.9% NACL 1,000 ML IV PRN (16:45)
[2025-08-05] MEDS ORDERED: LEVE-21 PO (17:03)
[2025-08-05] MEDS ORDERED: PREG25CA PO (17:05)
[2025-08-05] MEDS ORDERED: PRAZ1CAP5 PO (17:07)
[2025-08-05] MEDS ORDERED: RIME75TA PO (17:09)
[2025-08-05] MEDS ORDERED: QUET100T32 PO (17:09)
[2025-08-05] MEDS ORDERED: HYDR50TA62 PO (17:10)
[2025-08-05] MEDS ORDERED: CLON0.5T4 PO (17:11)
[2025-08-05] MEDS ORDERED: PARO40TA4 PO (17:12)
[2025-08-05] MEDS: MORPHINE SULFATE 2 MG/1 ML DISP.SYRIN IV PRN (18:38)
[2025-08-05 19:00] VITALS: BP 113/69; TEMP 97.6; O2SAT 96
[2025-08-05] MEDS: QUETIAPINE FUMARATE 100 MG TABLET PO SCH (21:56)
[2025-08-05] MEDS: CLONAZEPAM 0.5 MG TABLET PO SCH (21:56)
[2025-08-06 04:00] VITALS: BP 103/61; TEMP 97.6; O2SAT 95
[2025-08-06 06:47] LABS: PLATELET COUNT (AUTO) 175 K/uL (179-408); RED BLOOD CELL COUNT(AUTO) 4.29 MIL/uL (3.63-4.92); RED CELL DISTRIBUTION WIDTH 14.3 % (12.3-17.7); WHITE BLOOD COUNT (AUTO) 5.4 K/uL (3.8-11.8)
[2025-08-06 07:08] LABS: ASPARTATE AMINOTRANSFERASE 33.0 U/L (15-37); CREATININE 0.6 mg/dL (0.6-1.3); SODIUM SERUM 140.0 mmol/L (136-145); TOTAL PROTEIN, SERUM 6.1 g/dL (6.4-8.2); UREA NITROGEN, BLOOD 2.0 mg/dL (7-18)
[2025-08-06 07:09] LABS: IRON, SERUM 77.0 ug/dL (50-175)
[2025-08-06] MEDS: POTASSIUM CHLORIDE 20 MEQ TAB.PRT.SR PO ONE (09:01)
[2025-08-06] MEDS: PAROXETINE HCL 20 MG TABLET PO SCH (09:01)
[2025-08-06] MEDS: PANTOPRAZOLE SODIUM 40 MG VIAL IV SCH (09:01)
[2025-08-06] MEDS: PREGABALIN 25 MG CAPSULE PO SCH (09:01)
[2025-08-06 10:36] VITALS: BP 108/72; TEMP 98; O2SAT 99
[2025-08-06 15:47] VITALS: BP 104/63; TEMP 97.4; O2SAT 96
== END 2025-08-06 16:45 | disposition home or self-care (01) | DRG 247 ==
LOC: ER 06:17 → MEDSURG3 12:49
PROVIDERS: ADMIT Internal Medicine; ATTEND Internal Medicine
DX: K56.7 Ileus, unspecified (principal); K52.1 Toxic gastroenteritis and colitis; E66.9 Obesity, unspecified; J45.909 Unspecified asthma, uncomplicated; G40.909 Epilepsy, unspecified, not intractable, without status epilepticus; T50.995A Adverse effect of other drugs, medicaments and biological substances, initial encounter; Y92.009 Unspecified place in unspecified non-institutional (private) residence as the place of occurrence of the external cause; Z68.28 Body mass index [BMI] 28.0-28.9, adult; Z79.85 Long-term (current) use of injectable non-insulin antidiabetic drugs; G43.909 Migraine, unspecified, not intractable, without status migrainosus; F99 Mental disorder, not otherwise specified; Z79.899 Other long term (current) drug therapy; Z88.0 Allergy status to penicillin; Z88.1 Allergy status to other antibiotic agents
CPT/HCPCS: 36415; 74021; 83550; 83605; 83690; 83735; 84100; 84443; 84703; 85025; 87086; G0378; J1171; J1200; J1885; J2270; J2405; J2470; J3475; J7040; J7042; Q9967